=== PATIENT | female | born 1945 | race Caucasian/White ===

== ENCOUNTER 2025-02-18 20:11 | Emergency (ER) | payer BC, MEDICARE, SELFPAY ==
[2025-02-18 20:11] VITALS: BMI 40.4
[2025-02-18 20:21] VITALS: BP 117/48
[2025-02-18 20:59] LABS: % Basophils 0.5 % (0-2); % Eosinophils 1.8 % (0-6); % Immature Granulocytes 0.3 % (0-0.5); % Lymphocytes 15.1 % (20.5-51.1); % Monocytes 4.8 % (1.7-9.3); % Neutrophils 77.5 % (42.2-75.2); Absolute Basophils 0.1 10^3/uL (0-0.2); Absolute Eosinophils 0.2 10^3/uL (0-0.7); Absolute Lymphocytes 1.8 10^3/uL (1.2-3.4); Absolute Monocytes 0.6 10^3/uL (0.1-0.6); Absolute Neutrophils 9.2 10^3/uL (1.4-6.5); Hematocrit 38.3 % (37.0-47.0); Hemoglobin 13.2 g/dL (12.0-16.0); Mean Corp Hgb Conc. 34.5 g/dL (33.0-37.0); Mean Corpuscular Hgb 31.7 pg (27.0-31.0); Mean Corpuscular Volume 92.1 fL (81.0-99.0); Mean Platelet Volume 10.7 fL (7.4-10.4); Nucleated Red Blood Cells % 0 %; Platelet Count 159 10^3/uL (130-400); Red Blood Cell Count 4.16 10^6/uL (4.20-5.40); White Blood Cell Count 11.9 10^3/uL (4.8-10.8)
[2025-02-18 21:02] LABS: Urine Albumin 2+ (Neg - Trace); Urine Bilirubin Negative (Negative); Urine Character Clear (Clear); Urine Color Yellow; Urine Glucose Negative (Negative); Urine Ketone Negative (Negative); Urine Leukocyte 3+ (Negative); Urine Nitrite Positive (Negative); Urine Occult Blood 2+ (Negative); Urine Urobilinogen 1+ (Neg - 1+)
[2025-02-18 21:11] LABS: ALT (SGPT) 30 U/L (0-35); AST (SGOT) 38 U/L (14-36); Albumin 3.5 g/dl (3.5-5.0); Alkaline Phosphatase 77 U/L (38-126); Blood Urea Nitrogen 18 mg/dl (7-17); Calcium 9.2 mg/dl (8.4-10.2); Carbon Dioxide 27 mmol/L (22-30); Chloride 106 mmol/L (98-107); Glucose 142 mg/dl (70-99); Lipase 68 U/L (23-300); Potassium 3.9 mmol/L (3.5-5.1); Sodium 139 mmol/L (135-145); Total Bilirubin 0.8 mg/dl (0.2-1.3); Total Protein 5.8 g/dl (6.3-8.2); eGFR > 60.00
[2025-02-18 21:13] LABS: Urine Bacteria Many (Negative); Urine Red Blood Cell 0-2 /HPF (0-2); Urine White Cell >100 /HPF (0-5)
[2025-02-18 22:49] VITALS: BP 111/51
[2025-02-19] MEDS: NSS 500 IV (00:32)
[2025-02-19 01:17] VITALS: BP 101/64
--- NOTE | 2025-02-19 01:42 | ED.GENMED ---
History of Present Illness
<Jay Gomez MD - Last Filed: 02/19/25 02:59>
General
Chief Complaint: Urinary Symptoms
Source: patient
Exam Limitations: none
Time Seen by Provider: 02/19/25 00:08
Nursing documentation reviewed up to this point in time: agreed with
History of Present Illness
History of Present Illness:
Patient presents to ED secondary to persistent lower abdominal/lower back pain starting today, along with 4-day history of dysuria and urinary frequency. Patient was treated with Keflex 1 month ago for UTI. Denies fever or chills. Denies nausea
or vomiting. Patient does report not feeling well with decreased appetite. Denies diarrhea. Denies trauma.
Review of Systems
<Jay Gomez MD - Last Filed: 02/19/25 02:59>
Review of Systems
Allergies reviewed?: Yes
All Other Systems: ROS reviewed and negative except as documented in HPI and ROS
Constitutional: Reports no symptoms; Denies fever or chills
Respiratory: Reports no symptoms
ABD/GI: Reports abdominal pain; Denies vomiting or diarrhea
: Reports dysuria, frequency and flank pain
Musculoskeletal: Reports back pain
Skin: Reports no symptoms
Neurological: Reports no symptoms
Phy Exam
<Jay Gomez MD - Last Filed: 02/19/25 02:59>
Physical Exam
Physical Exam:
Physical Exam
General: no apparent distress, not acutely ill. afebrile
Head: nc/at. eomi
Neck: supple. normal range of motion.
Heart: s1/s2 regular rate and rhythm, no murmur.
Lungs: no acute respiratory distress. clear bilaterally
Abdomen: normal bowel sounds. not tender. negative CVA tenderness
Neuro: alert and oriented x 3. no focal neurological deficits
Skin: no rash
Psychiatric: well kept. interactive and cooperative
Extremities: no edema. no calf tenderness.
Course
<Jay Gomez MD - Last Filed: 02/19/25 02:59>
Orders/Labs/Results
Orders:
Orders
02/18/25 20:49
Complete Blood Count/With Diff Urgent
Comprehensive Metabolic Panel Urgent
Lipase Urgent
Urinalysis Reflex To Culture Urgent
Date Specimen was Collected: 02/18/25
Time Specimen was Collected: 20:22
Urine Microscopic Reflex Cult Urgent
Urine Culture Urgent
NATALIO Source: U
Specimen Description:
Date Specimen was Collected: 02/18/25
Time Specimen was Collected: 20:22
02/19/25 00:31
0.9% Sodium Chloride 500 ml [Nss] 500 ml IV BOLUS
02/19/25 02:39
CT Abd/pelvis W Iv Cont Urgent
Comment:
Reason For Exam: LLQ pain
02/19/25 03:24
Tramadol HCl [Ultram] 50 mg PO NOW STA
02/19/25 05:30
Cefepime HCl [Maxipime] 2,000 mg IV NOW STA
02/19/25 05:38
Sterile Water [Sterile Water For Injection] 20 ml .ROUTE .[facility]-MED
Abnormal Lab Results
02/18/25
20:49
WBC 11.9 H 10^3/uL
(4.8-10.8)
RBC 4.16 L 10^6/uL
(4.20-5.40)
MCH 31.7 H pg
(27.0-31.0)
MPV 10.7 H fL
(7.4-10.4)
Absolute Neuts (auto) 9.2 H 10^3/uL
(1.4-6.5)
Neutrophils % 77.5 H %
(42.2-75.2)
Lymphocytes % 15.1 L %
(20.5-51.1)
BUN 18 H mg/dl
(7-17)
Glucose 142 H mg/dl
(70-99)
AST 38 H U/L
(14-36)
Total Protein 5.8 L g/dl
(6.3-8.2)
Ur Occult Blood Reflex 2+ A
(Negative)
Urine Nitrite (Reflex) Positive A
(Negative)
Leukocyte Esterase Rfl 3+ A
(Negative)
Urine WBC (Reflex) >100 A /HPF
(0-5)
Urine Bacteria (Reflex) Many A
(Negative)
Urine Albumin (Reflex) 2+ A
(Neg - Trace)
02/18/25 20:49
02/18/25 20:49
Vital Signs
Initial and Last Documented VS:
Initial Vital Signs
Temp Pulse Resp Pulse Ox
98.6 F 64 18 99
02/18/25 20:16 02/18/25 20:16 02/18/25 20:16 02/18/25 20:16
Last Documented Vital Signs
Temp Pulse Resp BP Pulse Ox
98.2 F 75 14 119/54 97
02/18/25 22:49 02/19/25 03:19 02/19/25 02:30 02/19/25 05:45 02/19/25 05:45
<Emiliana Hart, DO - Last Filed: 02/19/25 06:28>
Orders/Labs/Results
Orders:
Orders
02/18/25 20:49
Complete Blood Count/With Diff Urgent
Comprehensive Metabolic Panel Urgent
Lipase Urgent
Urinalysis Reflex To Culture Urgent
Date Specimen was Collected: 02/18/25
Time Specimen was Collected: 20:22
Urine Microscopic Reflex Cult Urgent
Urine Culture Urgent
NATALIO Source: U
Specimen Description:
Date Specimen was Collected: 02/18/25
Time Specimen was Collected: 20:22
02/19/25 00:31
0.9% Sodium Chloride 500 ml [Nss] 500 ml IV BOLUS
02/19/25 02:39
CT Abd/pelvis W Iv Cont Urgent
Comment:
Reason For Exam: LLQ pain
02/19/25 03:24
Tramadol HCl [Ultram] 50 mg PO NOW STA
02/19/25 05:30
Cefepime HCl [Maxipime] 2,000 mg IV NOW STA
02/19/25 05:38
Sterile Water [Sterile Water For Injection] 20 ml .ROUTE .[facility]
Abnormal Lab Results
02/18/25
20:49
WBC 11.9 H 10^3/uL
(4.8-10.8)
RBC 4.16 L 10^6/uL
(4.20-5.40)
MCH 31.7 H pg
(27.0-31.0)
MPV 10.7 H fL
(7.4-10.4)
Absolute Neuts (auto) 9.2 H 10^3/uL
(1.4-6.5)
Neutrophils % 77.5 H %
(42.2-75.2)
Lymphocytes % 15.1 L %
(20.5-51.1)
BUN 18 H mg/dl
(7-17)
Glucose 142 H mg/dl
(70-99)
AST 38 H U/L
(14-36)
Total Protein 5.8 L g/dl
(6.3-8.2)
Ur Occult Blood Reflex 2+ A
(Negative)
Urine Nitrite (Reflex) Positive A
(Negative)
Leukocyte Esterase Rfl 3+ A
(Negative)
Urine WBC (Reflex) >100 A /HPF
(0-5)
Urine Bacteria (Reflex) Many A
(Negative)
Urine Albumin (Reflex) 2+ A
(Neg - Trace)
02/18/25 20:49
02/18/25 20:49
Vital Signs
Initial and Last Documented VS:
Initial Vital Signs
Temp Pulse Resp Pulse Ox
98.6 F 64 18 99
02/18/25 20:16 02/18/25 20:16 02/18/25 20:16 02/18/25 20:16
Last Documented Vital Signs
Temp Pulse Resp BP Pulse Ox
98.2 F 75 14 119/54 97
02/18/25 22:49 02/19/25 03:19 02/19/25 02:30 02/19/25 05:45 02/19/25 05:45
<Emiliana Hart DO - Last Filed: 02/19/25 06:28>
*Critical Care Note
Total Time (30-74mins, 75-104mins- exclusive of procedures): Not Applicable
<Emiliana Hart DO - Last Filed: 02/19/25 06:28>
Update Note
Update Note:
Attending Signout Note - Emiliana Hart DO
03:00 -assumed care of patient, 84 female presenting for frequent urinary tract infections. Patient has had about 5 episodes of UTI in the past year, most recently 3 weeks ago, treated successfully with Keflex. However 3 days ago, started to have
urinary symptoms again, with generalized lower back pain and feeling unwell. Hemodynamically stable in the ER. Urine shows evidence of UTI. Pending CT imaging to rule out ascending UTI versus pyelo versus stone.
05:30 -CT without significant pathology. There is mention of some enhancement to the right ureter, consistent with UTI. On reassessment, patient is resting comfortably. She would prefer to go home. Offered admission based on her symptoms and
recent UTI 3 weeks ago. 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 Plan for oral antibiotics, outpatient urology follow-up. Strict return precautions were communicated including any worsening pain,
development of fever, any change in behavior, vomiting with inability to tolerate food or liquid by mouth
ED Attending Note
<Jay Gomez MD - Last Filed: 02/19/25 02:59>
-
Portions of this chart may have been created with voice recognition software.� Occasional wrong word or��sound alike� substitutions may have occurred due to the inherent limitations of voice recognition software.
Discharge Plan
Departure
Patient Disposition: Home (Routine Discharge)
Date of Disposition: 02/19/25
Time of Disposition: 05:39
Patient with high blood pressure during this ER visit?: No
Condition: Good
Discharge Problem:
Urinary tract infection
Prescriptions:
New
cefdinir 300 mg capsule
300 mg PO BID 7 Days Qty: 14 0RF
Referrals:
[facility] [Other]
Michael Zhang Jr., MD [Active] -
Activity Restrictions/Additional Instructions:
You were seen in the emergency department for urinary symptoms and back pain
You were found to have a urinary tract infection. You were started on an antibiotic. Please take as directed. Please follow-up with the urologist. Return immediately to the emergency department with any increased pain, development of fever, any
change in behavior, vomiting with inability to tolerate food or liquid by mouth with concern for dehydration
Please follow-up closely with your primary care physician.
Additionally, return to the emergency department for any development of chest pain, difficulty breathing, weakness, headache or confusion, or any additional symptoms that are concerning to you.
Thank you for choosing [facility].
Interventions
Interventions:
*Risk Screen - Suicide Last Done: 02/18/25 20:21
*General Assessment Last Done: 02/18/25 20:21
*Neglect/Abuse Screening Last Done: 02/18/25 20:21
*ED- Fall Risk Assessment Last Done: 02/19/25 05:55
*ED COVID-19 Vaccine History Last Done: 02/18/25 20:21
*Nursing Disposition Last Done: 02/19/25 05:55
ML-Qgdfzu-Slxrucwiyl Assessment Last Done: 02/19/25 00:19
ED-Female Genitourinary Assessment Last Done: 02/19/25 00:19
Discharge Date and Time
Discharge Date/Time: 02/19/25 05:58
Print Language: BARBADIAN
[2025-02-19 02:00] VITALS: BP 107/61
[2025-02-19 03:19] VITALS: BP 107/56
[2025-02-19] MEDS: ULTRAM 50 MG PO (03:48)
[2025-02-19] MEDS: MAXIPIME 2000 MG IV (05:39)
[2025-02-19 05:45] VITALS: BP 119/54
== END 2025-02-19 05:58 | disposition home or self-care (01) ==
LOC: EMR 20:11
PROVIDERS: Student in an Organized Health Care Education/Training Program; EMERGENCY PHYSICIAN Student in an Organized Health Care Education/Training Program
DX: N39.0 Urinary tract infection, site not specified (principal)
CPT/HCPCS: 99285; 96374; 96361; 74177; 80053; 81003; 81015; 83690; 85025; 87077; 87086; Q9967